=== PATIENT | male | born 1935 | race Caucasian/White ===

== ENCOUNTER 2020-07-21 09:36 | Inpatient (IN) | payer MEDICARE ==
[~2020-07-21] VITALS: Ht 182.9 cm; Wt 83.9 kg
--- NOTE | ~2020-07-21 | CON ---
[address] [address] CONSULTATION Name: LEON VELEZ Room: [address] IN M.R.#: [id number] Admission: 07/21/20 Attend Phys: Deedee Dejesus MD Discharge: Date of : 31 Report #: [id number] THIS REPORT FOR: cc: Felicia Hahn Tara DO ~ Khosla, Parveen K. MD DATE OF SERVICE: 07/22/2020 HISTORY OF PRESENT ILLNESS: This is an 84-year-old male patient who was evaluated by me for altered mental status. This patient is a poor historian. I cannot reach anybody who can give a good history in this patient. He says that he lives with his . I cannot reach his because according to him, she is in a hospital with stroke. She is not in this hospital, but she is in a different hospital. He says the has children, but they are not in contact with them very often. It looks like he is admitted with altered mental status. I reviewed the records and admission history and physical examinations. He is suspected of having pneumonia. The patient is confused, but he looks less confused than appeared to be during the history and physical examination of Dr. Dejesus. REVIEW OF SYSTEMS: I tried to carry out a 14-point review of system, either from the records or from the patient himself. I am not able to carry out good records on either side. He has a history of hypertension. He probably has a history of dementia. This is because he is on Aricept. He is also on duloxetine, which I suspect is because of depression. He does appear to have a history of abdominal aneurysms, back problem and hypertension. This is all the 14-point review of system I can get after looking at all the records and after trying to talk to him. PAST MEDICAL HISTORY: Looks like positive for dementia. The labs here indicates that he may be having dehydration because his creatinine was high, although is coming down some and his sodium was also high. FAMILY HISTORY: Unremarkable. SOCIAL HISTORY: He says he does not drink any alcohol. PHYSICAL EXAMINATION: The patient does have a speech. When I asked him what month it is, he can tell me, he can tell me what hospital he is in, so looks like his memory is pretty poor. His speech looks intact and his fund of knowledge is diminished. Cranial nerve examination 2-12 does indicate that it does appear unremarkable. He moves all 4 extremities and strength looks symmetrical. Position sense appeared to be intact. He says he can appreciate the touch. His reflexes are diminished. [place] [address] CONSULTATION Name: LEON VELEZ Room: [address] IN M.R.#: [id number] Admission: 07/21/20 Attend Phys: Deedee Dejesus MD Discharge: Date of : 33 Report #: [id number] on both sides. There is no meningeal sign. I could not look at the patient's fundus. There is no carotid bruit. There is no meningeal sign. The patient is a well-developed individual who does not appear to have any dysmorphic features of eyes, ears and face. His vision and hearing looks adequate. His pulses are difficult to tell. Cardiac and respiratory examinations appear noncontributory. He does not have any thyroid mass. LABORATORY DATA: His sodium is 147 and creatinine is 1.6. Chest x-ray was noticed. White count of 7. He did have a CT scan of the head, which demonstrated some atrophy. IMPRESSION: This patient most likely has dementia with superimposed encephalopathy. He appeared to be better to some extent. I will continue to make an effort to reach some family member. I will check an EEG. We will check a TSH and vitamin B12. If his was helping him in the day-to-day activity and now she had a stroke, we may have to find an alternate living arrangement for him. I discussed with him, but I am not sure how much he understand things and I will try to make an effort to continue to reach the family. Thank you very much for this referral. By: 1130 [id number] Alegria MD /yoav
--- NOTE | ~2020-07-21 | EEG ---
[address] [address] EEG STUDY REPORT Name: LEON VELEZ Room: [address] IN .R.#: [id number] Admission: 07/21/20 Attend Phys: Deedee Dejesus MD Discharge: Date of : 33 Report #: [id number] THIS REPORT FOR: cc: Felicia Hahn Tara DO ~ Khosla, Parveen K. MD DATE OF SERVICE: 07/22/2020 This patient is being evaluated for altered mental status. EEG was done by placing the electrodes by standard 10-20 system of electrode placement. Both differential and sequential montages were used for recording. Background activity in this patient's EEG is about 7 Hz and 30 microvolt. The patient became drowsy that is associated with bilateral symmetrical sleep spindle and vertex sharp waves. Photic stimulation is unremarkable. Throughout the record, no active epileptiform activity was noticed. IMPRESSION: This patient's EEG is intermixed with slowing on both sides. That is a nonspecific abnormality, which can occur with dementia, encephalopathy, effect of psychotropic medication, etc. Clinical correlation is recommended. By: 19 24Mark Alegria MD /nt
[~2020-07-21 09:36] MED LIST: AMLODIPINE BESY10 MG PO; CARISOPRODOL 3350 M1 GT; INDERIDE PO; LISINOPRIL40 MG PO; LYNOX 10-300 M1 EACH PO; ONDANSETRON HCL4 M2 PO; PHENERGAN 25 MG25 MG PO; PROCHLORPERAZINE5 M1 PO
[2020-07-21 09:52] VITALS: BP 174/99
[2020-07-21 10:22] LABS: ABSOLUTE BASOPHILS 0.1 thou/uL (0.0-0.2); ABSOLUTE EOSINOPHILS 0.2 thou/uL (0.0-0.7); ABSOLUTE LYMPHOCYTES 1.7 thou/uL (0.8-5.3); ABSOLUTE MONOCYTES 0.8 thou/uL (0.0-1.2); ABSOLUTE NEUTROPHILS 5.5 thou/uL (1.6-8.1); BASOPHILS 1.2 %; EOSINOPHILS 2.6 %; HEMATOCRIT 40.3 % (42.0-52.0); HEMOGLOBIN 13.4 gm/dL (14.0-18.0); LYMPHOCYTES 20.1 %; MCH 29.4 pg (26.0-34.0); MCHC 33.3 g/dL (28.0-37.0); MCV 88.3 fL (80.0-100.0); MONOCYTES 9.8 %; MPV 7.7 fl. (7.2-11.1); NUCLEATED RBCS 0 /100WBC; PLATELET COUNT* 351 thou/uL (150-400); POLYS 66.3 %; RBC 4.56 mil/uL (4.50-6.00); RDW-CV 14.1 % (10.5-14.5); WBC 8.3 thou/uL (4.0-11.0)
[2020-07-21 10:28] LABS: URINE BILIRUBIN NEGATIVE (Negative); URINE BLOOD TRACE (Negative); URINE CLARITY CLEAR; URINE COLOR YELLOW; URINE GLUCOSE-RANDOM NEGATIVE (Negative); URINE KETONES NEGATIVE (Negative); URINE LEUKOCYTES-REFLEX NEGATIVE (Negative); URINE NITRITE-REFLEX NEGATIVE (Negative); URINE PROTEIN 1+ (Negative); URINE SPECIFIC GRAVITY 1.025 (1.005-1.030); URINE UROBILINOGEN 0.2 E.U./dl (0.2-1.0)
[2020-07-21 10:32] LABS: CALCIUM 9.2 mg/dL (8.5-10.1); CREATININE 2.1 mg/dL (0.6-1.3); POTASSIUM 3.6 mmol/L (3.5-5.1)
[2020-07-21 10:34] LABS: INR 1.2; PROTIME 12.6 Seconds (9.20-11.50)
[2020-07-21 10:40] LABS: CASTS None Seen /LPF (None Seen); CRYSTALS None Seen /LPF (None Seen); SQUAMOUS 0-3 Few /LPF (0-3); URINE RBC 3-10 Few /HPF (0-2); URINE WBC-REFLEX 0-5 Rare /HPF (0-5)
[2020-07-21] MEDS ORDERED: ARICEPT10 M1 PO (10:42)
[2020-07-21 10:43] LABS: ALBUMIN 3.6 g/dL (3.4-5.0); TOTAL BILIRUBIN 0.7 mg/dL (<0.1-1.0); TOTAL PROTEIN 7.6 g/dL (6.4-8.2)
[2020-07-21] MEDS ORDERED: SPIRONOLACTONE25 MG PO (10:43)
[2020-07-21] MEDS ORDERED: CARVEDILOL12.5 MG PO (10:43)
[2020-07-21] MEDS ORDERED: CHILDREN'S ASPI81 M1 PO (10:44)
[2020-07-21] MEDS ORDERED: PROTONIX40 M2 PO (10:45)
[2020-07-21] MEDS ORDERED: COZAAR 25 MG TA25 M2 PO (10:45)
[2020-07-21] MEDS ORDERED: DULOXETINE HCL60 MG PO (10:46)
[2020-07-21 15:38] VITALS: BP 136/91
[2020-07-21 16:00] VITALS: BP 143/77
[2020-07-21 19:30] VITALS: BP 159/79
[2020-07-22] VITALS (7 sets, daily range): BP systolic 141–174; BP diastolic 72–84
--- NOTE | 2020-07-22 02:43 | NUR ---
ASSUMED CARE OF PT AT 1900. PT IS CONFUSED AND AGITATED. PT REFUSES TO TAKE ANY MEDS. PT REFUSES TO TAKE OFF HIS JEANS. VSS. PERRLA. NO COMPLAINTS OF PAIN. PT IS IN SINUS RYTHM ON THE TELEMETRY. PT IS RESTING COMFORTABLY IN BED. RESPIRATIONS ARE EVEN AND NONLABORED. WILL CONTINUE TO MONITOR PT.
[2020-07-22 05:13] LABS: HEMATOCRIT 32.7 % (42.0-52.0); MCH 29.2 pg (26.0-34.0); MCHC 33.6 g/dL (28.0-37.0); MCV 86.9 fL (80.0-100.0); MPV 7.6 fl. (7.2-11.1); RBC 3.76 mil/uL (4.50-6.00); RDW-CV 13.8 % (10.5-14.5)
[2020-07-22 05:26] LABS: CALCIUM 8.8 mg/dL (8.5-10.1); CREATININE 1.6 mg/dL (0.6-1.3); MAGNESIUM 1.9 mg/dL (1.8-2.4); POTASSIUM 3.3 mmol/L (3.5-5.1)
--- NOTE | 2020-07-22 09:21 | EKG ---
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 : 1935 Requested By: Mariano Albert Order Number: [id number] MD: Gilles Eric Measurements Intervals [place] Rate: 77 P: -8 FL: 155 QRS: -52 QRSD: 161 T: 101 QT: 466 QTc: 528 Interpretive Statements Sinus rhythm Left bundle branch block Compared to ECG 10/16/2005 17:13:59 Left bundle-branch block now present Electronically Signed On 07-22-2020 9:21:29 LOCAL COORDINATOR by Gilles Eric [email or web address] <ELECTRONICALLY SIGNED> By: Gilles Eric MD, [facility] 07/22/20 0921 1021 1021 Gilles Eric MD, [facility] /EPI
--- NOTE | 2020-07-22 09:47 | NUR ---
CM SPOKE TO THE PT TO DISCUSS CM ASSESSMENT. PT ALERT, BUT [id number]. PT UNABLE TO ANSWER ASSESSEMENT QUESTIONS. PT RESPONDS 'I DON'T KNOW WHEN ASKED ABOUT LIVING STIUATION AND DME. CM SPOKE TO PT'S SON PAOLO AND HE INFORMS THAT THE PT CURRENTLY RESIDES AT HOME WITH HIM. PT RECENTLY D/C'D FROM SNF AT [facility] HE HAD TESTED POSITIVE FOR COVID 19. PT USES A CANE AT HOME FOR MOBILITY. PT HAS 0 HX OF HH, BUT PT'S SON IS OPEN TO HH AT D/C. CM WILL REMAIN AVAILABLE TO ASSIST AND FOLLOW NEEDED.
[2020-07-23 04:25] LABS: HEMATOCRIT 31.2 % (42.0-52.0); HEMOGLOBIN 10.6 gm/dL (14.0-18.0); MCH 29.7 pg (26.0-34.0); MCHC 34.1 g/dL (28.0-37.0); MPV 7.6 fl. (7.2-11.1); RBC 3.59 mil/uL (4.50-6.00); RDW-CV 13.5 % (10.5-14.5); WBC 7.4 thou/uL (4.0-11.0)
[2020-07-23 04:30] VITALS: BP 171/85
[2020-07-23 04:49] LABS: ALBUMIN 2.9 g/dL (3.4-5.0); CALCIUM 9.3 mg/dL (8.5-10.1); CREATININE 1.3 mg/dL (0.6-1.3); MAGNESIUM 1.8 mg/dL (1.8-2.4); TOTAL BILIRUBIN 0.6 mg/dL (<0.1-1.0); TOTAL PROTEIN 6.5 g/dL (6.4-8.2)
--- NOTE | 2020-07-23 06:37 | NUR ---
NURSING ASSESSMENT COMPLETED AT START OF SHIFT. PT VOICED NO CONCERNS, SR BBB ON X RAY TECHNOLOGIST. HOURLY ROUNDING COMPLETED. CALL LIGHT WITHIN REACH.
[2020-07-23 07:30] VITALS: BP 176/87
[2020-07-23 11:40] VITALS: BP 155/93
--- NOTE | 2020-07-23 13:29 | NUR ---
CM INFORMED DURING PRIME ROUNDING OF THE PLAN OF CARE FOR THE PT. PLAN FOR PT TO HAVE OVERNIGHT OX TESTING. CHEST X-RAY PENDING. PATIENT MAY NEED HOME O2 AT D/C. PT'S SON REQUEST HH AT D/C. CM WILL REMAIN AVAILABLE TO ASSIST AND FOLLOW NEEDED.
[2020-07-23 16:45] VITALS: BP 167/88
--- NOTE | 2020-07-23 18:20 | NUR ---
ASSUMED PT CARE AT 0730, PT AOX SELF, PLEASANTLY CONFUSED AND FORGETFUL. PT FREQUENTLY REMINDED TO CALL OUT WHEN NEEDING TO GET UP, FALL PRECAUTIONS IN PLACE. PT SON IN ROOM THIS AFTERNOON AND UPDATED ON POC. PT GOAL IS TO CONTINUE TO WORK W/ NURSING STAFF AND REMAIN FREE FROM FALLS. MEDS PER MAR, HOURLY ROUNDING OBSERVED, CALL LIGHT W/IN REACH.
[2020-07-23 20:00] VITALS: BP 154/81
[2020-07-23 20:45] VITALS: BP 154/81
[2020-07-24] VITALS (7 sets, daily range): BP systolic 145–172; BP diastolic 78–89
[2020-07-24 03:54] LABS: CALCIUM 8.8 mg/dL (8.5-10.1); CREATININE 1.2 mg/dL (0.6-1.3); MAGNESIUM 1.8 mg/dL (1.8-2.4); POTASSIUM 4.3 mmol/L (3.5-5.1)
--- NOTE | 2020-07-24 04:02 | NUR ---
ASSUMED PT CARE AT APPROX. 1945. PT IS A/O TO SELF. PT IS UP WITH STAND BY ASSIST X1 AND USE OF WALKER. PT HAD INTERMITTENT CONFUSION DURING THE NIGHT. PT HAS BED ALARM IN PLACE FOR SAFETY. PT CALL LIGHT WITHIN REACH. PT REMOVED IV TONIGHT. NEW IV TO BE PLACED THIS AM. PT HAD A K+ LAB AT 3.0 ON 07-23-20 AND WAS REPLACED X1 DURING DAYSHIFT AND SECOND DOSE GIVEN AT 2100. LAB RESULTS PENDING. PT IS ON TELE MONITOR WHICH REVEALS SR WITH BBB. PT IS ON RA. O2 SAT 96%. VSS. NO C/O VOICED. PT IS CURRENLTY RESTING IN BED. ALL SAFETY MEASURES IN PLACE. CALL LIGHT REMAINS IN REACH.
--- NOTE | 2020-07-24 04:09 | NUR ---
LAB RESULTS REVIEWED. PT'S K+ LAB IS 4.3.
--- NOTE | 2020-07-24 05:52 | NUR ---
ADDENDUM: AT APPROX. 0400 THIS AM PT C/O URINARY RETENTION AND BLADDER FULLNESS. PT USED URINAL X3 TONIGHT WITH 250ML OUTPUT IN TOTAL, DARK YELLOW IN COLOR. PT'S BLADDER WAS SCANNED AND NO URINE WAS NOTED ON SCANNER. WILL NOTIFY DAYSHIFT. PT CURRENTLY RESTING.
[2020-07-24] MEDS ORDERED: AZITHROMYCIN 2250 MG PO (09:08)
[2020-07-24] MEDS ORDERED: CEFDINIR300 MG PO (09:08)
--- NOTE | 2020-07-24 13:16 | NUR ---
ASSUMED PT CARE AT 0730, PT SLEEPING, ORIENTED TO SELF BUT CONFUSED OTHERWISE. PT WORKED W/ DR TODAY AND DC ORDERS RECEIVED. DC INSTRUCTIONS, CARE NOTES, SCRIPTS AND F/U APPTS GIVEN TO PT AND HIS SON, PAOLO. PAOLO COMMUNICATES UNDERSTANDING OF DC TEACHING. PT DC'D HIS OWN IV, CHASER HELPER REMOVED AND PT DC'D BY WC W/ NURSING STAFF W/ ALL PAPERWORK AND BELONGINGS AT APPROX 1320 TO SON'S PERSONAL VEHICLE.
== END 2020-07-24 13:18 | disposition home health service (06) | DRG 682 ==
LOC: M.ERS 09:36 → M.TBA-ER 13:04 → M.2W 13:04
PROVIDERS: Emergency Medicine Emergency Medical Services; Internal Medicine; ADMIT Internal Medicine; ATTEND Internal Medicine
DX: N17.9 Acute kidney failure, unspecified (principal); J15.9 Unspecified bacterial pneumonia; G92 Toxic encephalopathy; J96.01 Acute respiratory failure with hypoxia; I50.22 Chronic systolic (congestive) heart failure; E87.1 Hypo-osmolality and hyponatremia; N39.0 Urinary tract infection, site not specified; I11.0 Hypertensive heart disease with heart failure; Z86.16 Personal history of COVID-19; G89.29 Other chronic pain; M54.9 Dorsalgia, unspecified; F03.90 Unspecified dementia, unspecified severity, without behavioral disturbance, psychotic disturbance, mood disturbance, and anxiety; Z20.822 Contact with and (suspected) exposure to COVID-19; Z79.899 Other long term (current) drug therapy

== ENCOUNTER 2020-07-26 13:03 | Emergency (ER) | payer MEDICARE ==
[~2020-07-26] VITALS: Ht 182.9 cm; Wt 95.3 kg
[~2020-07-26 13:03] MED LIST changes: +ARICEPT10 M1 PO; +AZITHROMYCIN 2250 MG PO; +CARVEDILOL12.5 MG PO; +CEFDINIR300 MG PO; +CHILDREN'S ASPI81 M1 PO; +COZAAR 25 MG TA25 M2 PO; +DULOXETINE HCL60 MG PO; +PROTONIX40 M2 PO; +SPIRONOLACTONE25 MG PO
[2020-07-26 14:03] LABS: ABSOLUTE BASOPHILS 0.1 thou/uL (0.0-0.2); ABSOLUTE MONOCYTES 1.1 thou/uL (0.0-1.2); ABSOLUTE NEUTROPHILS 5.9 thou/uL (1.6-8.1); BASOPHILS 0.8 %; EOSINOPHILS 0.5 %; HEMATOCRIT 37.2 % (42.0-52.0); HEMOGLOBIN 12.3 gm/dL (14.0-18.0); LYMPHOCYTES 21.7 %; MCH 29.2 pg (26.0-34.0); MCHC 33.1 g/dL (28.0-37.0); MCV 88.3 fL (80.0-100.0); MONOCYTES 12.4 %; MPV 7.5 fl. (7.2-11.1); NUCLEATED RBCS 0 /100WBC; PLATELET COUNT* 379 thou/uL (150-400); POLYS 64.6 %; RBC 4.21 mil/uL (4.50-6.00); RDW-CV 14.1 % (10.5-14.5); WBC 9.1 thou/uL (4.0-11.0)
[2020-07-26 14:19] LABS: CALCIUM 9.1 mg/dL (8.5-10.1); CREATININE 1.5 mg/dL (0.6-1.3); POTASSIUM 3.5 mmol/L (3.5-5.1)
[2020-07-26 14:24] LABS: ALBUMIN 3.8 g/dL (3.4-5.0); MAGNESIUM 2.1 mg/dL (1.8-2.4); PHOSPHORUS* 3.9 mg/dL (2.5-4.9); TOTAL BILIRUBIN 0.4 mg/dL (<0.1-1.0); TOTAL PROTEIN 7.4 g/dL (6.4-8.2)
[2020-07-26 15:28] LABS: URINE BILIRUBIN NEGATIVE (Negative); URINE BLOOD TRACE (Negative); URINE CLARITY CLEAR; URINE COLOR YELLOW; URINE GLUCOSE-RANDOM NEGATIVE (Negative); URINE KETONES NEGATIVE (Negative); URINE LEUKOCYTES NEGATIVE (Negative); URINE NITRITE NEGATIVE (Negative); URINE PROTEIN 1+ (Negative); URINE SPECIFIC GRAVITY 1.025 (1.005-1.030); URINE UROBILINOGEN 0.2 E.U./dl (0.2-1.0)
[2020-07-26] MEDS ORDERED: NAMENDA 5 MG TAB5 M1 PO (15:50)
--- NOTE | 2020-07-26 17:07 | EKG ---
[place] [address] ELECTROCARDIOGRAM REPORT Name: LEON VELEZ Room: [facility]#: [id number] Admission: 07/26/20 Attend Phys: Discharge: Date of : 31 Date of Service: 07/26/20 1331 Report #: [id number] THIS REPORT FOR: //name// [facility] ED Test Date: 2020-07-26 Test Time: 13:31:39 Pat Name: LEON VELEZ Department: Room: Gender: Sole Blacker: UNKNOWN : 1935 Requested By: Shawn Sands Order Number: [id number] MD: Leon Denny Measurements Intervals [place] Rate: 86 P: 24 VA: 153 QRS: -49 QRSD: 162 T: 99 QT: 448 QTc: 536 Interpretive Statements Sinus rhythm Left bundle branch block Compared to ECG 07/21/2020 10:21:39 No significant changes Electronically Signed On 07-26-2020 17:07:22 SENIOR TECHNICAL WRITER by Leon Denny [email or web address] <ELECTRONICALLY SIGNED> By: Leon Dneny MD, [facility] 07/26/20 1707 1331 1331 Leon Denny MD, [facility] /EPI
--- NOTE | 2020-07-26 17:28 | NUR ---
Spoke with patient's son about plan of care needs. Discharge with HH is most appropriate for the patient at this time. Faxed referral to [facility] ([phone]; fax: [phone]) and HH referral form to Randa at [facility]. Provided son with facility information for future placement in a skilled nursing/ltc/memory care unit. Son thinks he will eventually place patient in the same facility as his so they will be closer together. Patient and son verbalize understanding of the plan of care and all needs have been addressed. No other CM needs noted at this time.
[2020-07-26 17:34] VITALS: BP 156/94
== END 2020-07-26 17:40 | disposition home or self-care (01) ==
LOC: M.ERS 13:03
PROVIDERS: Emergency Medicine
DX: F03.90 Unspecified dementia, unspecified severity, without behavioral disturbance, psychotic disturbance, mood disturbance, and anxiety (principal); R07.89 Other chest pain; G89.29 Other chronic pain; Z20.828 Contact with and (suspected) exposure to other viral communicable diseases; I10 Essential (primary) hypertension; Z87.01 Personal history of pneumonia (recurrent)

== ENCOUNTER 2020-12-01 16:05 | Emergency (ER) | payer MEDICARE ==
[~2020-12-01] VITALS: Ht 180.3 cm; Wt 91.0 kg
[~2020-12-01 16:05] MED LIST changes: +NAMENDA 5 MG TAB5 M1 PO
[2020-12-01 16:33] LABS: ABSOLUTE EOSINOPHILS 0.1 thou/uL (0.0-0.7); ABSOLUTE LYMPHOCYTES 2.3 thou/uL (0.8-5.3); ABSOLUTE MONOCYTES 0.7 thou/uL (0.0-1.2); ABSOLUTE NEUTROPHILS 4.1 thou/uL (1.6-8.1); BASOPHILS 0.4 %; HEMOGLOBIN 12.9 gm/dL (14.0-18.0); LYMPHOCYTES 31.7 %; MCH 29.2 pg (26.0-34.0); MCHC 33.2 g/dL (28.0-37.0); MONOCYTES 9.3 %; MPV 7.2 fl. (7.2-11.1); NUCLEATED RBCS 0 /100WBC; PLATELET COUNT* 261 thou/uL (150-400); POLYS 57.6 %; RBC 4.43 mil/uL (4.50-6.00); RDW-CV 14.4 % (10.5-14.5); WBC 7.1 thou/uL (4.0-11.0)
[2020-12-01 16:40] LABS: CALCIUM 8.9 mg/dL (8.5-10.1); CREATININE 1.3 mg/dL (0.6-1.3); POTASSIUM 3.7 mmol/L (3.5-5.1)
[2020-12-01 16:48] LABS: APTT 25.6 Seconds (25.0-31.3); INR 1.2; PROTIME 12.3 Seconds (9.20-11.50)
[2020-12-01 16:53] LABS: ALBUMIN 3.8 g/dL (3.4-5.0); TOTAL BILIRUBIN 0.3 mg/dL (<0.1-1.0); TOTAL PROTEIN 7.6 g/dL (6.4-8.2)
[2020-12-01 18:02] LABS: URINE BILIRUBIN NEGATIVE (Negative); URINE BLOOD NEGATIVE (Negative); URINE CLARITY CLEAR; URINE COLOR YELLOW; URINE GLUCOSE-RANDOM NEGATIVE (Negative); URINE KETONES NEGATIVE (Negative); URINE LEUKOCYTES-REFLEX NEGATIVE (Negative); URINE NITRITE-REFLEX NEGATIVE (Negative); URINE PROTEIN NEGATIVE (Negative); URINE SPECIFIC GRAVITY >= 1.030 (1.005-1.030); URINE UROBILINOGEN 0.2 E.U./dl (0.2-1.0)
[2020-12-01 18:45] VITALS: BP 165/90
--- NOTE | 2020-12-02 10:31 | EKG ---
[place] [address] ELECTROCARDIOGRAM REPORT Name: LEON VELEZ JR Room: 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: ARCELIA : 1935 Requested By: Earle Landis Order Number: [id number] MD: Gilles Eric Measurements Intervals [place] Rate: 75 P: -10 NC: 155 QRS: -53 QRSD: 159 T: 115 QT: 461 QTc: 515 Interpretive Statements Sinus rhythm Left bundle branch block Compared to ECG 07/26/2020 13:31:39 No significant changes Electronically Signed On 12-02-2020 10:31:41 CDT by Gilles Eric [email or web address] <ELECTRONICALLY SIGNED> By: Gilles Eric MD, [facility] 12/02/20 1031 1638 1638 Gilles Eric MD, [facility] /EPI
== END 2020-12-01 18:45 | disposition home or self-care (01) ==
LOC: M.ERS 16:05
PROVIDERS: Family Medicine
DX: F03.91 Unspecified dementia, unspecified severity, with behavioral disturbance (principal); R41.82 Altered mental status, unspecified; I10 Essential (primary) hypertension; Z86.16 Personal history of COVID-19; Z79.899 Other long term (current) drug therapy; Z79.82 Long term (current) use of aspirin

== ENCOUNTER 2020-12-04 16:20 | Inpatient (IN) | payer MEDICARE ==
[~2020-12-04] VITALS: Ht 182.9 cm; Wt 85.8 kg
[2020-12-04 16:55] LABS: ABSOLUTE EOSINOPHILS 0.1 thou/uL (0.0-0.7); ABSOLUTE LYMPHOCYTES 2.3 thou/uL (0.8-5.3); ABSOLUTE MONOCYTES 0.8 thou/uL (0.0-1.2); BASOPHILS 0.2 %; EOSINOPHILS 1.7 %; HEMATOCRIT 36.9 % (42.0-52.0); HEMOGLOBIN 12.3 gm/dL (14.0-18.0); LYMPHOCYTES 31.7 %; MCH 28.8 pg (26.0-34.0); MCHC 33.3 g/dL (28.0-37.0); MCV 86.6 fL (80.0-100.0); MONOCYTES 10.8 %; MPV 7.2 fl. (7.2-11.1); NUCLEATED RBCS 0 /100WBC; PLATELET COUNT* 259 thou/uL (150-400); POLYS 55.6 %; RBC 4.26 mil/uL (4.50-6.00); RDW-CV 14.2 % (10.5-14.5); WBC 7.2 thou/uL (4.0-11.0)
[2020-12-04 17:04] VITALS: BP 176/83
[2020-12-04 17:08] LABS: APTT 26.5 Seconds (25.0-31.3); INR 1.2; PROTIME 12.8 Seconds (9.20-11.50)
[2020-12-04 17:16] LABS: CALCIUM 8.6 mg/dL (8.5-10.1); CREATININE 1.2 mg/dL (0.6-1.3); POTASSIUM 4.1 mmol/L (3.5-5.1)
[2020-12-04 17:20] LABS: ALBUMIN 3.6 g/dL (3.4-5.0); TOTAL BILIRUBIN 0.3 mg/dL (<0.1-1.0); TOTAL PROTEIN 7.2 g/dL (6.4-8.2)
[2020-12-04 18:28] VITALS: BP 159/77
[2020-12-04 18:40] VITALS: BP 175/87
[2020-12-04 20:00] VITALS: BP 177/80
[2020-12-05 00:32] VITALS: BP 117/72
[2020-12-05 03:45] VITALS: BP 144/90
[2020-12-05 03:59] LABS: HEMATOCRIT 37.1 % (42.0-52.0); HEMOGLOBIN 12.4 gm/dL (14.0-18.0); MCH 29.1 pg (26.0-34.0); MCHC 33.4 g/dL (28.0-37.0); MCV 87.3 fL (80.0-100.0); MPV 7.4 fl. (7.2-11.1); RBC 4.25 mil/uL (4.50-6.00); WBC 8.4 thou/uL (4.0-11.0)
[2020-12-05 04:16] LABS: ALBUMIN 3.6 g/dL (3.4-5.0); ALKALINE PHOSPHATASE 58 U/L (46-116); ANION GAP 7 mmol/L (7-16); BUN 16 mg/dL (7-18); CALCIUM 9.1 mg/dL (8.5-10.1); CHLORIDE 102 mmol/L (98-107); CHOLESTEROL 205 mg/dL (<200); CO2 32 mmol/L (21-32); CREATININE 1.2 mg/dL (0.6-1.3); GLUCOSE 96 mg/dL (70-99); HDL CHOLESTEROL 41 mg/dL (>40); LDL CHOLESTEROL 134 mg/dL (<100); POTASSIUM 3.6 mmol/L (3.5-5.1); SGOT 12 U/L (15-37); SGPT 13 U/L (30-65); SODIUM 141 mmol/L (136-145); TOTAL BILIRUBIN 0.6 mg/dL (<0.1-1.0); TOTAL PROTEIN 7.4 g/dL (6.4-8.2); TRIGLYCERIDE 153 mg/dL (<150); VLDL 31 mg/dL (<40)
[2020-12-05 04:19] LABS: SERUM ASSESSMENT CLEAR
[2020-12-05 08:00] VITALS: BP 125/56
--- NOTE | 2020-12-05 09:36 | EKG ---
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
--- NOTE | 2020-12-05 11:04 | EKG ---
[place] [address] ELECTROCARDIOGRAM REPORT Name: LEON VELEZ JR Room: [address] ADM IN M.R.#: [id number] Admission: 12/04/20 Attend Phys: Abdirahman Denise Discharge: Date of : 31 Date of Service: 12/05/20 0245 Report #: [id number] THIS REPORT FOR: //name// [facility] Test Date: 2020-12-05 Test Time: 02:45:29 Pat Name: LEON VELEZ Department: Room: [address] Gender: M Measurement Specialist: NAGI : 1935 Requested By: Abdirahman Denise Order Number: [id number] Kiara MD: Gilles Eric Measurements Intervals [place] Rate: 67 P: -29 RI: 159 QRS: -53 QRSD: 167 T: 115 QT: 491 QTc: 519 Interpretive Statements Sinus rhythm Left bundle branch block Baseline wander in lead(s) I,III,aVL,aVF,V1,V2,V3,V5,V6 Compared to ECG 12/04/2020 16:25:44 No significant changes Electronically Signed On 12-05-2020 11:04:29 CDT by Gilles Eric [email or web address] <ELECTRONICALLY SIGNED> By: Gilles Eric MD, [facility] 12/05/20 1104 0245 Gilles Eric MD, [facility] /EPI
[2020-12-05 12:33] VITALS: BP 170/80
[2020-12-05 12:44] LABS: HEMATOCRIT 38.6 % (42.0-52.0); HEMOGLOBIN 12.8 gm/dL (14.0-18.0); MCHC 33.3 g/dL (28.0-37.0); MPV 7.3 fl. (7.2-11.1); RBC 4.43 mil/uL (4.50-6.00); RDW-CV 14.1 % (10.5-14.5); WBC 7.5 thou/uL (4.0-11.0)
[2020-12-05 12:45] LABS: CALCIUM 9.2 mg/dL (8.5-10.1); CREATININE 1.2 mg/dL (0.6-1.3); POTASSIUM 4.2 mmol/L (3.5-5.1)
[2020-12-05 12:50] LABS: ALBUMIN 3.8 g/dL (3.4-5.0); TOTAL BILIRUBIN 0.8 mg/dL (<0.1-1.0); TOTAL PROTEIN 7.4 g/dL (6.4-8.2)
[2020-12-05 12:51] LABS: APTT 27.3 Seconds (25.0-31.3); INR 1.2; PROTIME 12.7 Seconds (9.20-11.50)
--- NOTE | 2020-12-05 12:55 | 2DMMODE ---
[place] [address] 2 D/M-MODE ECHOCARDIOGRAM Name: LEON VELEZ JR Room: [address] IN [place]#: [id number] Admission: 12/04/20 Attend Phys: Abdirahman Denise Discharge: Date of : 31 Date of Service: 12/05/20 1255 Report #: [id number] THIS REPORT FOR: cc: Felicia Hahn,Felicia Christensen,Gilles Kellogg MD [facility] ~ APPROVED REPORT Study performed: 12/05/2020 11:29:03 EXAM: Comprehensive 2D, Doppler, and color-flow Echocardiogram Patient Location: In-Patient Room #: [facility] Status: routine BSA: 2.08 HR: 72 bpm BP: 125/56 mmHg Rhythm: NSR Other Information Study Quality: Good Indications CVA/TIA Echo Enhancing Agent Indication: Rule out Shunt Agent(s) / Amount(s) Used: Agitated Saline 10 cc 2D Dimensions IVSd: 11.89 (7-11mm) LVOT Diam: 22.73 (18-24mm) LVDd: 64.27 mm PWd: 10.53 (7-11mm) Ascending Ao: 36.64 (22-36mm) LVDs: 52.89 (25-40mm) Aortic Root: 35.93 mm Volumes Left Atrial Volume (Systole) LA ESV Index: 24.90 mL/m2 Aortic Valve AoV Peak Daniel.: 1.67 m/s AO Peak Gr.: 11.17 mmHg LVOT Max P.75 mmHg AO Mean Gr.: 6.11 mmHg LVOT Mean P.18 [place] [address] 2 D/M-MODE ECHOCARDIOGRAM Name: LEON VELEZ JR Room: [address] IN [facility]#: [id number] Admission: 12/04/20 Attend Phys: Abdirahman Denise Discharge: Date of : 31 Date of Service: 12/05/20 1255 Report #: [id number] LVOT Max V: 0.83 m/s AO V2 VTI: 24.67 cm LVOT Mean V: 0.49 m/s MARANDA (VTI): 1.98 cm2 LVOT V1 VTI: 12.04 cm TDI Medial E' Daniel.: 0.00 m/s Lateral E' Daniel.: 0.07 m/s Tricuspid Valve RAP Estimate: 5.00 mmHg TR Peak Gr.: 27.88 mmHg RVSP: 32.00 mmHg PA Pressure: 32.00 mmHg Left Ventricle Left ventricle is moderately dilated. There is global hypokinesis of the left ventricle. There is normal left ventricular wall thickness. Left ventricular systolic function is moderately decreased. LVEF is 25-30%. This study is not technically sufficient to allow evaluation of the LV diastolic function. Right Ventricle The right ventricle is normal size. The right ventricular systolic function is normal. Atria The left atrium size is normal. The interatrial septum is intact with no evidence for an atrial septal defect. The right atrium size is normal. Aortic Valve Severe aortic valve sclerosis. No aortic regurgitation is present. There is no aortic valvular stenosis. Mitral Valve There is mitral annular calcification. The mitral valve is normal in structure. Trace mitral regurgitation. No evidence of mitral valve stenosis. Tricuspid Valve The tricuspid valve is normal in structure. Trace tricuspid regurgitation. Mild pulmonary hypertension. Pulmonic Valve Pulmonic valve is not well visualized. There is trace pulmonic [place] [address] 2 D/M-MODE ECHOCARDIOGRAM Name: LEON VELEZ JR Room: [address]#: [id number] Admission: 12/04/20 Attend Phys: Abdirahman Denise Discharge: Date of : 31 Date of Service: 12/05/20 1255 Report #: [id number] Great Vessels The aortic root is normal in size. IVC is not well visualized. Pericardium There is no pericardial effusion. <Conclusion> Left ventricle is moderately dilated. LVEF is 25-30%. Severe aortic valve sclerosis. The interatrial septum is intact with no evidence for an atrial septal defect. <ELECTRONICALLY SIGNED> By: Gilles Eric MD, [facility] 12/05/20 1255 1255 1255 Gilles Eric MD, [facility] /INF
--- NOTE | 2020-12-05 14:54 | EKG ---
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: ZARA : 1935 Requested By: Ashley Quinteros Order Number: [id number] Kiara MD: Gilles Eric Measurements Intervals [place] Rate: 87 P: -18 [place]: 170 QRS: -59 QRSD: 162 T: 115 QT: 450 QTc: 542 Interpretive Statements Sinus rhythm Atrial premature complex Left bundle branch block Compared to ECG 12/05/2020 02:45:29 Atrial premature complex(es) now present Electronically Signed On 12-05-2020 14:54:23 CDT by Gilles Eric [email or web address] <ELECTRONICALLY SIGNED> By: Gilles Eric MD, [facility] 12/05/20 1454 1435 1435 Gilles Eric MD, [facility] /EPI
[2020-12-05 17:00] VITALS: BP 135/71
[2020-12-05 18:08] LABS: URINE BILIRUBIN NEGATIVE (Negative); URINE BLOOD NEGATIVE (Negative); URINE CLARITY CLEAR; URINE COLOR YELLOW; URINE GLUCOSE-RANDOM NEGATIVE (Negative); URINE KETONES NEGATIVE (Negative); URINE LEUKOCYTES-REFLEX NEGATIVE (Negative); URINE NITRITE-REFLEX NEGATIVE (Negative); URINE PROTEIN NEGATIVE (Negative); URINE SPECIFIC GRAVITY <= 1.005 (1.005-1.030); URINE UROBILINOGEN 0.2 E.U./dl (0.2-1.0)
[2020-12-05 20:00] VITALS: BP 136/82
[2020-12-05 22:06] LABS: LDL (DIRECT) CHOL 144 mg/dL (0-99)
[2020-12-06 00:08] VITALS: BP 101/57
[2020-12-06 04:26] VITALS: BP 126/72
[2020-12-06 04:40] LABS: HEMATOCRIT 39.9 % (42.0-52.0); HEMOGLOBIN 13.6 gm/dL (14.0-18.0); MCH 29.4 pg (26.0-34.0); MCV 86.5 fL (80.0-100.0); MPV 7.7 fl. (7.2-11.1); RBC 4.61 mil/uL (4.50-6.00); RDW-CV 14.2 % (10.5-14.5); WBC 7.5 thou/uL (4.0-11.0)
[2020-12-06 04:59] LABS: CALCIUM 9.3 mg/dL (8.5-10.1); CREATININE 1.2 mg/dL (0.6-1.3); POTASSIUM 4.4 mmol/L (3.5-5.1)
[2020-12-06 08:00] VITALS: BP 149/83
[2020-12-06] MEDS ORDERED: LIPITOR 20 MG T20 M1 PO (10:35)
[2020-12-06] MEDS ORDERED: PLAVIX 75 MG TA75 M1 PO (10:35)
[2020-12-06 11:48] VITALS: BP 158/90
[2020-12-06 17:21] VITALS: BP 129/63
[2020-12-06 20:09] VITALS: BP 123/59
[2020-12-07 00:53] VITALS: BP 136/61
[2020-12-07 04:28] VITALS: BP 142/60
[2020-12-07 08:00] VITALS: BP 159/77
[2020-12-07] MEDS ORDERED: ELIQUIS5 MG PO (13:33)
[2020-12-07 13:44] VITALS: BP 159/77
[2020-12-07 13:52] VITALS: BP 121/50
== END 2020-12-07 14:10 | disposition home or self-care (01) | DRG 65 ==
LOC: M.ERS 16:20 → M.2W 17:16 → M.TBA-ER 17:16 → M.2W 18:42
PROVIDERS: Family Medicine; Psychiatry & Neurology Neurology; ADMIT Internal Medicine; ATTEND Internal Medicine
DX: I63.9 Cerebral infarction, unspecified (principal); I50.20 Unspecified systolic (congestive) heart failure; G81.94 Hemiplegia, unspecified affecting left nondominant side; I65.21 Occlusion and stenosis of right carotid artery; I11.0 Hypertensive heart disease with heart failure; G89.29 Other chronic pain; M54.9 Dorsalgia, unspecified; Z20.822 Contact with and (suspected) exposure to COVID-19; Z95.4 Presence of other heart-valve replacement; Z86.16 Personal history of COVID-19; Z79.82 Long term (current) use of aspirin; Z79.899 Other long term (current) drug therapy

== ENCOUNTER 2020-12-22 09:21 | Emergency (ER) | payer MEDICARE ==
[~2020-12-22] VITALS: Ht 182.9 cm; Wt 90.7 kg
[~2020-12-22 09:21] MED LIST changes: +ELIQUIS5 MG PO; +LIPITOR 20 MG T20 M1 PO; +PLAVIX 75 MG TA75 M1 PO
[2020-12-22] MEDS ORDERED: ROBITUSSIN30 MG/5 ML PO (09:51)
[2020-12-22] MEDS ORDERED: ZPAK PO (09:51)
[2020-12-22] MEDS ORDERED: PREDNISONE 20 M20 M1 PO (09:51)
[2020-12-22] MEDS ORDERED: VENTOLIN HFA 1818 GM INH (09:51)
[2020-12-22 10:17] VITALS: BP 115/70
== END 2020-12-22 10:18 | disposition home or self-care (01) ==
LOC: M.ERS 09:21
DX: J40 Bronchitis, not specified as acute or chronic (principal); I11.0 Hypertensive heart disease with heart failure; I50.9 Heart failure, unspecified; Z87.01 Personal history of pneumonia (recurrent)

== ENCOUNTER 2021-01-10 13:39 | Emergency (ER) | payer MEDICARE ==
[~2021-01-10] VITALS: Ht 182.9 cm; Wt 95.3 kg
[~2021-01-10 13:39] MED LIST changes: +PREDNISONE 20 M20 M1 PO; +ROBITUSSIN30 MG/5 ML PO; +VENTOLIN HFA 1818 GM INH; +ZPAK PO
[2021-01-10] MEDS ORDERED: AMOXICILLIN 50500 MG PO (15:12)
[2021-01-10] MEDS ORDERED: NASAL SPRAY30 M2 NASAL (15:12)
[2021-01-10 15:53] VITALS: BP 133/54
== END 2021-01-10 15:53 | disposition home or self-care (01) ==
LOC: M.ERS 13:39
DX: J01.90 Acute sinusitis, unspecified (principal); I10 Essential (primary) hypertension; Z79.82 Long term (current) use of aspirin; Z79.899 Other long term (current) drug therapy; Z95.1 Presence of aortocoronary bypass graft; Z86.73 Personal history of transient ischemic attack (TIA), and cerebral infarction without residual deficits

== ENCOUNTER 2021-03-13 11:50 | Emergency (ER) | payer MEDICARE ==
[~2021-03-13] VITALS: Ht 182.9 cm; Wt 86.2 kg
[~2021-03-13 11:50] MED LIST changes: +AMOXICILLIN 50500 MG PO; +NASAL SPRAY30 M2 NASAL
[2021-03-13] MEDS ORDERED: MEDROLDOSEPACK PO (12:48)
[2021-03-13 13:09] VITALS: BP 141/70
== END 2021-03-13 13:09 | disposition home or self-care (01) ==
LOC: M.ERS 11:50
DX: M54.5 Low back pain (principal); M79.604 Pain in right leg; M79.605 Pain in left leg; F03.90 Unspecified dementia, unspecified severity, without behavioral disturbance, psychotic disturbance, mood disturbance, and anxiety; I11.0 Hypertensive heart disease with heart failure; I50.9 Heart failure, unspecified; Z86.73 Personal history of transient ischemic attack (TIA), and cerebral infarction without residual deficits; Z98.890 Other specified postprocedural states; Z79.899 Other long term (current) drug therapy; Z88.6 Allergy status to analgesic agent

== ENCOUNTER 2021-05-10 12:29 | Emergency (ER) | payer MEDICARE ==
[~2021-05-10] VITALS: Ht 182.9 cm; Wt 74.8 kg
[~2021-05-10 12:29] MED LIST changes: +MEDROLDOSEPACK PO
[2021-05-10] MEDS ORDERED: TRAZODONE HCL50 MG PO (12:56)
[2021-05-10] MEDS ORDERED: PLAVIX 75 MG TA75 MG PO (12:56)
[2021-05-10] MEDS ORDERED: TYLENOL EXTRA500 MG PO (12:57)
[2021-05-10 13:44] LABS: ABSOLUTE EOSINOPHILS 0.1 thou/uL (0.0-0.7); ABSOLUTE LYMPHOCYTES 2.1 thou/uL (0.8-5.3); ABSOLUTE MONOCYTES 0.6 thou/uL (0.0-1.2); ABSOLUTE NEUTROPHILS 4.8 thou/uL (1.6-8.1); BASOPHILS 0.5 %; EOSINOPHILS 1.2 %; HEMOGLOBIN 12.5 gm/dL (14.0-18.0); LYMPHOCYTES 27.7 %; MCH 29.6 pg (26.0-34.0); MCHC 32.9 g/dL (28.0-37.0); MCV 89.9 fL (80.0-100.0); MONOCYTES 8.3 %; MPV 6.8 fl. (7.2-11.1); NUCLEATED RBCS 0 /100WBC; PLATELET COUNT* 329 thou/uL (150-400); POLYS 62.3 %; RBC 4.23 mil/uL (4.50-6.00); WBC 7.6 thou/uL (4.0-11.0)
[2021-05-10 13:53] LABS: CALCIUM 8.8 mg/dL (8.5-10.1); CREATININE 1.4 mg/dL (0.6-1.3)
[2021-05-10 14:04] LABS: ALBUMIN 3.7 g/dL (3.4-5.0); TOTAL BILIRUBIN 0.3 mg/dL (<0.1-1.0); TOTAL PROTEIN 7.6 g/dL (6.4-8.2)
[2021-05-10 15:17] VITALS: BP 120/62
--- NOTE | 2021-05-11 10:02 | EKG ---
[place] [address] ELECTROCARDIOGRAM REPORT Name: LEON VELEZ JR Room: [facility]#: [id number] Admission: 05/10/21 Attend Phys: Discharge: 05/10/21 Date of : 31 Date of Service: 05/10/21 1328 Report #: [id number] THIS REPORT FOR: //name// [facility] ED Test Date: 2021-05-10 Test Time: 13:28:41 Pat Name: LEON VELEZ Department: Room: Gender: Doctor Of Optometry: : 1935 Requested By: Earle Landis Order Number: [id number] MD: Sunny Woodward Measurements Intervals [place] Rate: 77 P: 11 IN: 167 QRS: -53 QRSD: 160 T: 114 QT: 472 QTc: 535 Interpretive Statements Sinus rhythm Multiple ventricular premature complexes Left bundle branch block Compared to ECG 12/05/2020 14:35:30 Ventricular premature complex(es) now present Atrial premature complex(es) no longer present Electronically Signed On 05-11-2021 10:02:16 CDT by Sunny Woodward [email or web address] <ELECTRONICALLY SIGNED> By: Destiny Woodward MD, [facility] 05/11/21 1002 1328 1328 Destiny Woodward MD, [facility] /EPI
== END 2021-05-10 15:17 | disposition home or self-care (01) ==
LOC: M.ERS 12:29
PROVIDERS: Family Medicine
DX: R06.00 Dyspnea, unspecified (principal); R20.2 Paresthesia of skin; I11.0 Hypertensive heart disease with heart failure; I50.9 Heart failure, unspecified; Z79.82 Long term (current) use of aspirin; Z79.899 Other long term (current) drug therapy